=== PATIENT | female | born 1940 | race Caucasian/White ===

== ENCOUNTER 2019-09-12 06:48 | Outpatient (CLI) | payer MEDICARE ==
[2019-09-12 11:01] LABS: Bacteria/HPF None Seen HPF (None Seen); Bilirubin Negative (Negative); Blood, Urine Negative (Negative); Clarity Clear (Clear); Glucose, Urine (Dipstick) Normal (Negative); Leukocyte 250 Leu/uL (Negative); Nitrite Negative (Negative); Protein, Urine (Dipstick) Negative (Neg-Trace); RBC/HPF 0-3 HPF (0-3); Squamous Epithelial 0-3 HPF (0-3); Urobilinogen Normal mg/dL (Less than 2); WBC/HPF 0-3 HPF (0-3)
[2019-09-12 11:44] LABS: #Lymphocytes 1.4 thou/uL (1.20-3.40); #Monocytes 0.3 thou/uL (0.11-0.59); #Neutrophils 2.1 thou/uL (1.40-6.50); %Basophils 0.9 % (0.0-1.0); %Eosinophils 1.2 % (0.0-10.0); %Lymphocytes 36.3 % (21.0-51.0); %Monocytes 8.1 % (0.0-10.0); %Neutrophils 53.5 % (42.0-75.0); Hemoglobin 13.4 g/dL (12.0-16.0); MDiff Complete? YES; Macrocytosis MODERATE=16-30 cells (100X) (0-5/hpf); Mean Corpuscular HGB CONC 33.8 g/dL (32.0-36.0); Mean Corpuscular Hemoglobin 41.1 pg (27.0-31.0); Mean Platelet Volume 6.9 fL (7.4-10.4); Platelet Count 287 thou/uL (130-400); Platelet Morphology Comment Appears Adequate; Polychromasia SLIGHT = 2-3 cells (100X) (0-2/hpf); RBC Distribution Width 11.7 % (11.5-14.5); Red Blood Cell (RBC) Count 3.27 mill/uL (4.20-5.40); White Blood Cell (WBC) Count 3.9 thou/uL (4.8-10.8)
--- NOTE | 2019-09-12 16:30 | EKG ---
Test Reason : PREOP Blood Pressure : / mmHG Vent. Rate : 066 BPM Atrial Rate : 066 BPM P-R Int : 148 ms QRS Dur : 096 ms QT Int : 396 ms P-R-T Axes : 063 031 057 degrees QTc Int : 415 ms Normal sinus rhythm Normal ECG No previous ECGs available Confirmed by DR. Love HARRIS ([id number]) on 09/12/2019 4:29:40 PM Referred By: ANITA Confirmed By:DR. Love HARRIS
== END 2019-09-12 06:49 | disposition home or self-care (01) ==
LOC: LABBT 06:48
PROVIDERS: ATTEND Orthopaedic Surgery Hand Surgery
DX: Z01.818 Encounter for other preprocedural examination (principal); M65.4 Radial styloid tenosynovitis [de Quervain]
CPT/HCPCS: 81001; 85025; 93005; 93010

== ENCOUNTER 2019-09-13 05:48 | Day surgery (SDC) | payer MEDICARE ==
[2019-09-12 09:53] VITALS: BMI 26.9
[2019-09-13] MEDS ORDERED: Midazolam HCl 2 mg/2 ml Vial ONE (06:18)
[2019-09-13] MEDS ORDERED: Fentanyl 100 MCG/2 ML VIAL ONE (06:18)
[2019-09-13] MEDS ORDERED: Bupivacaine PF 0.5% 30 ML VIAL ONE (06:37)
[2019-09-13] MEDS ORDERED: Betamet Acet/Betamet Na Ph 30 MG/5 ML VIAL ONE (06:37)
[2019-09-13] MEDS ORDERED: Bacitracin Zinc Ointment 30 gm TUBE ONE (06:38)
[2019-09-13] MEDS ORDERED: hydrALAZINE 20 MG/ML VIAL ONE (08:56)
[2019-09-13] MEDS ORDERED: HYDROcodone/Acetaminophen 5/325 mg Tablet ONE (09:47)
[2019-09-13] MEDS ORDERED: Ondansetron PF 4 MG/2 ML Vial ONE (10:21)
[2019-09-13] MEDS ORDERED: PHENYLEPHRINE-NS 100 MCG/ML 10 ML SYRINGE ONE (10:21)
[2019-09-13] MEDS ORDERED: PROPOFOL 200 MG/20 ML VIAL ONE (10:21)
[2019-09-13] MEDS ORDERED: Ketorolac Tromethamine 30 MG/ML VIAL ONE (10:21)
[2019-09-13] MEDS ORDERED: Lidocaine 1% PF 5 ML VIAL ONE (10:21)
--- NOTE | 2019-09-13 10:56 | OP ---
DATE OF PROCEDURE: 09/13/2019 PREOPERATIVE DIAGNOSIS: 1. Right 1st dorsal compartment tenosynovitis with de Quervain disease. 2. 2nd dorsal compartment tenosynovitis at the intersection site. FINDINGS: 1. Mild tenosynovitis with thickening of the area between the 1st and 2nd dorsal compartment without true ganglion at the intersection site. 2. Very thick 1st dorsal compartment retinaculum with 6 sleeves of the tendons found, 2 of the extensor pollicis brevis and 4 of the abductor within the canal with marked tenosynovial edema. PROCEDURES PERFORMED: 1. First dorsal compartment incision. a. De Quervain's release of the stenosing tenosynovitis/retinaculum. b. Extensor tendon tenosynovectomy within one compartment. 2. 2nd procedure which is a separate incision would be second dorsal compartment release, intersection release, and tenosynovectomy. BLOOD LOSS: Less than 10 mL. TOURNIQUET TIME: 23 minutes. ANESTHESIA: General and LMA technique, augmented by 20 mL of 0.5% Marcaine block, all given before incision. SPECIMENS SENT: Tenosynovium to the lab. DESCRIPTION OF PROCEDURE: After successful anesthesia listed above, the limb was prepped and draped. Time-out confirmed as the right side for the tenosynovectomy and the procedure. With the tourniquet inflated and after the limb exsanguination, we gave 20 mL of 0.5% Marcaine, 10 in each incision, and then made a zigzag incision over 1st dorsal compartment. Immediately, we saw the superficial radial nerve branches, dissected to make it free, and then at the mid line, approached from dorsal to palmar, we made an incision in the very thick extensor retinaculum, which was almost 3 mm thick. We also released the area distal and proximal to that. It was here that we saw the marked tenosynovial swelling, but the obvious multiple tendon sleeves of 6 found in the compartment, and these had now developed marked tenosynovial edema, so radical extensor tenosynovectomy was performed of each of these tendon sleeves until we had eradicated the tenosynovial edema. Tendon sleeves were found within the retinacular remnant without volar subluxation. We gave 3 mL of Celestone here and placed a moist sponge. We then entered the zigzag incision, marked over the intersection site, carried through skin and subcutaneous tissue, and saw the superficial nerve branch very palmar, kept it there. We then dissected the tendons free, found no synovial edema under the abductor pollicis and extensor brevis, but we did see moderate tenosynovial edema over the site where these tendons rolled over the extensor carpi radialis, brevis, and longus. For this reason, extensor carpi radialis, brevis, and longus underwent a radical extensor tenosynovectomy and there were no further changes underneath these tendons between them and the bone. We let the tendons fall back in place, we gave the remaining Celestone between the 2nd and 1st dorsal compartment at the intersection site and then released the tourniquet and obtained hemostasis. We then closed the wound with interrupted 4-0 nylon without evidence of anesthetic or operative complication. Job ID: [id number]
== END 2019-09-13 10:15 | disposition home or self-care (01) ==
LOC: SDC 05:48
PROVIDERS: ATTEND Orthopaedic Surgery Hand Surgery
PROC: 0LN50ZZ Release Right Lower Arm and Wrist Tendon, Open Approach (ICD-10-PCS; principal; 2019-09-13)
PROC: 0LT50ZZ Resection of Right Lower Arm and Wrist Tendon, Open Approach (ICD-10-PCS; 2019-09-13)
DX: M65.841 Other synovitis and tenosynovitis, right hand (principal); M65.4 Radial styloid tenosynovitis [de Quervain]; M85.88 Other specified disorders of bone density and structure, other site; E78.5 Hyperlipidemia, unspecified; M19.90 Unspecified osteoarthritis, unspecified site; E78.00 Pure hypercholesterolemia, unspecified; K58.9 Irritable bowel syndrome, unspecified; Z79.899 Other long term (current) drug therapy; Z88.8 Allergy status to other drugs, medicaments and biological substances
CPT/HCPCS: J0360; J0690; J0702; J1885; J2001; J2250; J2405; J2704; J3010; J3490; S0020